=== PATIENT | male | born 1955 | race Caucasian/White ===

== ENCOUNTER → 2022-10-11 | Day surgery (SDC) | payer MEDICARE ==
[~2022-10-11] VITALS: Ht 172.7 cm; Wt 89.6 kg
[2022-10-11] VITALS (11 sets, daily range): BP systolic 125–193; BP diastolic 56–88
[~2022-10-11] MED LIST: AMLO2.5T2 PO; ASPI-612 PO; FLEC100T PO; LORazepam 0.5 MG tablet PO PRN; NEBI10TA12 PO; NITR0.4T48 SL; diphenhydrAMINE 25mg capsule PO PRN; fentaNYL/PF 50MCG/1 ML 2ML syringe ONE; heparin 1,000unit/ml 10ml vial 10 ML ONE; hydrALAZINE 20mg/ml inj. IV ONE; iohexol 350 MG/ML 50ML vial IV ONE; iohexol 350MG/ML 100ml bottle IV ONE; midazolam 1 mg/ML 2ml injection ONE; nitroGLYCERIN 0.4mg SUBLingual tab SL ONE; nitroGLYCERIN 0.4mg SUBLingual tab SL PRN; nitroGLYCERIN-Tridil 50MG/D5W 250 ML IV ONE; normal saline 1,000 ML IV SCH; verapamil 2.5 mg/ml inj IV ONE
--- NOTE | 2022-10-11 18:17 | NUR ---
Type and screen not performed, per lab the results are only valid for 72 hours.
== END | disposition home or self-care (01) ==
LOC: SSTAY O 13:41
PROVIDERS: ATTEND Internal Medicine Cardiovascular Disease
DX: I25.118 Atherosclerotic heart disease of native coronary artery with other forms of angina pectoris (principal); I10 Essential (primary) hypertension; E78.5 Hyperlipidemia, unspecified; I48.91 Unspecified atrial fibrillation; Z87.19 Personal history of other diseases of the digestive system; Z79.899 Other long term (current) drug therapy
CPT/HCPCS: 93005; 93459; 93880; 93970; 99152; 99153; C1760; C1894; J0360; J1644; J2250; J3010; J3490; J7030; Q0163; Q9967; 93458; A6258

== ENCOUNTER 2022-10-16 09:02 | Inpatient (IN) | payer MEDICARE ==
[~2022-10-16] VITALS: Ht 177.8 cm; Wt 87.0 kg
[2022-10-16] VITALS (13 sets, daily range): BP systolic 89–182; BP diastolic 47–85
[~2022-10-16 09:02] MED LIST changes: +DOCUMENT DATE & TIME OF BETA-BLOCKER PO ONE; +Insulin Reg/NS 100units/100mL 100 ML IV SCH; -LORazepam 0.5 MG tablet PO PRN; +LORazepam 2 mg/ml vial IV ONE; +albumin (human) 25% 100 ML IV solution IV ONE; +aminocaproic acid 250 MG/1 ML inj. ONE; +calcium chloride 100 MG/1 ML inj IV ONE; +cefazolin 2gm/D5W 100mL 100 ML IV ONE; -diphenhydrAMINE 25mg capsule PO PRN; +famotidine 20mg tablet PO ONE; -fentaNYL/PF 50MCG/1 ML 2ML syringe ONE; -heparin 1,000unit/ml 10ml vial 10 ML ONE; +heparin 10,000 units/1 ML INJ ONE; -hydrALAZINE 20mg/ml inj. IV ONE; -iohexol 350 MG/ML 50ML vial IV ONE; -iohexol 350MG/ML 100ml bottle IV ONE; +mannitol 12.5gm/50mL VIAL IV ONE; +methylPREDNISolone sod succ 1000mg vial ONE; +metoprolol tartrate 12.5mg (1/2 tablet) PO ONE; -midazolam 1 mg/ML 2ml injection ONE; +mupirocin 2% nasal ointment 1gm UD NS ONE; -nitroGLYCERIN 0.4mg SUBLingual tab SL ONE; -nitroGLYCERIN 0.4mg SUBLingual tab SL PRN; -nitroGLYCERIN-Tridil 50MG/D5W 250 ML IV ONE; -normal saline 1,000 ML IV SCH; +ringers solution, lacted 1,000 ML IV SCH; +sodium bicarbonate (8.4%) 1 mEq/ml syringe ONE; +vancomycin 1,500 MG in NS 300ml IV soln IV ONE; -verapamil 2.5 mg/ml inj IV ONE
[2022-10-16] MEDS ORDERED: albuterol 2.5 MG/3 ML nebule NEB PRN (09:05)
[2022-10-16 09:57] LABS: ABG BASE EXCESS -1.1 mmol/L (-2.0-2.0); ABG HCO3 22.8 mmol/L (22.0-26.0); ABG PCO2 (T) 36.2 mmHg (35.0-48.0); ABG PO2 (T) 88.6 mmHg (75.0-100.0); ALLEN'S TEST POSITIVE; FCOHb 0.3 % (0.0-3.9); FMetHb 0.2 % (0.0-1.5); FO2Hb 96.5 % (94-97); TOTAL HEMOGLOBIN 16.3 G/dl (14.0-17.9)
[2022-10-16 11:11] LABS: BASOPHILS % (AUTO) 0.4 % (0-1); EOSINOPHILS # (AUTO) 0.1 X10'3 (0-0.9); EOSINOPHILS % (AUTO) 1.2 % (0-6); LYMPHOCYTES % (AUTO) 13.9 % (21-51); MEAN CORPUSCULAR HEMOGLOBIN 29.3 PG (27.0-31.0); MEAN CORPUSCULAR HGB CONC 34.1 g/dL (33.0-36.5); MEAN CORPUSCULAR VOLUME 85.8 FL (78-98); MEAN PLATELET VOLUME 8.1 FL (7.4-10.4); MONOCYTES # (AUTO) 0.5 X10'3 (0-0.9); MONOCYTES % (AUTO) 7.7 % (2-12); NEUTROPHILS # (AUTO) 5.4 X10'3 (1.8-7.7); NEUTROPHILS % (AUTO) 76.8 % (42-75); PRE OP HEMATOCRIT 45.6 % (42.0-52.0); PRE OP HEMOGLOBIN 15.6 g/dL (14.0-17.9); PRE OP PLATELET COUNT 276 X10'3 (140-440); RED BLOOD COUNT 5.32 X10'6 (4.70-6.10); RED CELL DISTRIBUTION WIDTH 14.3 % (11.5-14.5)
[2022-10-16] MEDS ORDERED: epiNEPHrine 1 mg/ml inj ONE (11:15)
[2022-10-16] MEDS ORDERED: ceFAZolin 1000mg inj ONE (11:15)
[2022-10-16 11:20] LABS: CLARITY,URINE CLEAR (Clear); COLOR,URINE YELLOW (Yellow); GLUCOSE, URINE NEGATIVE (Neg); KETONES,URINE NEGATIVE (Neg); LEUKOCYTE ESTERASE ,URINE NEGATIVE (Neg); NITRITES, URINE NEGATIVE (Neg); OCCULT BLOOD,URINE TRACE-INTACT (Neg); PROTEIN,URINE NEGATIVE (Neg); UROBILINOGEN,URINE 0.2 E.U/dL (0.2-1.0)
[2022-10-16 11:22] LABS: PRE OP INR 0.9 INR; PRE OP PROTIME 10.4 SECONDS (9.0-12.0)
[2022-10-16 11:27] LABS: ALBUMIN 4.2 G/DL (3.4-5.0); ALBUMIN/GLOBULIN RATIO 1.3 (1.1-1.5); ALKALINE PHOSPHATASE 31 IU/L (46-116); BLOOD UREA NITROGEN 15 MG/DL (7-18); BUN/CREATININE RATIO 12.3 (10.0-20.0); CALCIUM 9.2 MG/DL (8.5-10.1); CHLORIDE 107 MMOL/L (99-107); CREATININE 1.22 MG/DL (0.60-1.10); PRE OP ALT 27 U/L (30-65); PRE OP ANION GAP 4 (8-16); PRE OP AST 17 U/L (10-37); PRE OP BILIRUB, TOTAL 0.7 MG/DL (0.0-1.0); PRE OP GLUCOSE 106 MG/DL (70-104); PRE OP POTASSIUM 4.5 MMOL/L (3.4-5.1); PRE OP SODIUM 140 MMOL/L (135-145); TOTAL CARBON DIOXIDE 28.6 MMOL/L (24-32); TOTAL PROTEIN 7.5 G/DL (6.4-8.2); eGFR 59 ML/MIN
[2022-10-16 11:39] LABS: UA COLLECTION TYPE CLN CATCH MIDSTREAM
[2022-10-16 11:41] LABS: BACTERIA,URINE NONE SEEN /HPF (Neg); RBC,URINE 0-2 /HPF (0-2); SQUAMOUS EPITHELIAL CELL,UR NONE SEEN /LPF (FEW); WBC,URINE NONE SEEN /HPF (0-4)
[2022-10-16] MEDS ORDERED: MIDAZolam 1 MG/ML 5ML VIAL ONE (12:28)
[2022-10-16] MEDS ORDERED: SUFENTANIL CITRATE 50 MCG/ML 2ml ampule IV ONE (12:28)
[2022-10-16] MEDS ORDERED: rocuronium 10mg/ml inj IV ONE ×2 (12:30)
[2022-10-16] MEDS ORDERED: sevoflurane 250ml liquid IH ONE (12:33)
[2022-10-16] MEDS ORDERED: protamine sulf. 10mg/ml inj. IV ONE (12:33)
[2022-10-16] MEDS ORDERED: BUPIVAcaine/PF 5 mg/ml 10ml ONE (12:37)
[2022-10-16 13:09] LABS: ABG BASE EXCESS 0.3 mmol/L (-2.0-2.0); ABG HCO3 23.8 mmol/L (22.0-26.0); ABG OXYGEN SATURATION 99.2 % (94-97); ABG PCO2 35.2 mmHg (35.0-48.0); ABG PO2 200.4 mmHg (75.0-100.0); CL (ABG) 107 mmol/L (99-107); FCOHb 0.4 % (0.0-3.9); FMetHb 0.3 % (0.0-1.5); FO2Hb 98.5 % (94-97); GLUCOSE (ABG) 92 mg/dl (70-104); IONIZED CA (ABG) 1.17 mmol/L (1.10-1.30); K (ABG) 4.1 mmol/L (3.5-5.1); TOTAL HEMOGLOBIN 14.2 G/dl (14.0-17.9)
[2022-10-16 13:18] LABS: ACT @ 1.70 U 307 SEC (193-297); ACT @ 2.84 U 463 SEC (260-420); BASELINE ACT 142 SEC (101-148); PATIENT WEIGHT 84.0k KG
[2022-10-16] MEDS ORDERED: heparin 10,000 units/1 ML INJ IV ONE (13:52)
[2022-10-16] MEDS ORDERED: papaverine 30 mg/ml 2ml inj. IV ONE (13:53)
[2022-10-16] MEDS ORDERED: propofol inj 20 ML IV ONE (13:54)
[2022-10-16] MEDS ORDERED: epiNEPHrine 1 mg/ml inj SQ ONE (13:55)
[2022-10-16 14:31] LABS: ABG BASE EXCESS -2.9 mmol/L (-2.0-2.0); ABG HCO3 21.7 mmol/L (22.0-26.0); ABG OXYGEN SATURATION 99.5 % (94-97); ABG PCO2 37.1 mmHg (35.0-48.0); ABG PO2 423.5 mmHg (75.0-100.0); CL (ABG) 104 mmol/L (99-107); FCOHb 0.2 % (0.0-3.9); FMetHb 0.3 % (0.0-1.5); GLUCOSE (ABG) 99 mg/dl (70-104); IONIZED CA (ABG) 1.05 mmol/L (1.10-1.30); K (ABG) 4.6 mmol/L (3.5-5.1); TOTAL HEMOGLOBIN 11.5 G/dl (14.0-17.9)
[2022-10-16 14:59] LABS: ABG BASE EXCESS -3.7 mmol/L (-2.0-2.0); ABG HCO3 21.1 mmol/L (22.0-26.0); ABG OXYGEN SATURATION 99.3 % (94-97); ABG PCO2 37.2 mmHg (35.0-48.0); ABG PO2 327.9 mmHg (75.0-100.0); CL (ABG) 105 mmol/L (99-107); FCOHb 0.4 % (0.0-3.9); FMetHb 0.3 % (0.0-1.5); FO2Hb 98.6 % (94-97); GLUCOSE (ABG) 106 mg/dl (70-104); IONIZED CA (ABG) 1.09 mmol/L (1.10-1.30); K (ABG) 4.6 mmol/L (3.5-5.1); TOTAL HEMOGLOBIN 11.8 G/dl (14.0-17.9)
[2022-10-16 15:36] LABS: ABG BASE EXCESS -1.4 mmol/L (-2.0-2.0); ABG HCO3 23.7 mmol/L (22.0-26.0); ABG OXYGEN SATURATION 76.8 % (94-97); ABG PCO2 40.9 mmHg (35.0-48.0); CL (ABG) 105 mmol/L (99-107); FCOHb 0.8 % (0.0-3.9); FMetHb 0.3 % (0.0-1.5); GLUCOSE (ABG) 104 mg/dl (70-104); K (ABG) 4.5 mmol/L (3.5-5.1); TOTAL HEMOGLOBIN 11.9 G/dl (14.0-17.9)
[2022-10-16 15:37] LABS: ACTIVATED CLOTTING TIME 130 SEC (101-148)
[2022-10-16] MEDS ORDERED: acetaminophen 1,000mg/100ml IV 100 ML IV ONE (15:38)
[2022-10-16] MEDS ORDERED: sodium phosphate inj. 15 MMOL in dextrose 5%-water 250 ML IV PRN (15:55)
[2022-10-16] MEDS ORDERED: potassium Cl 20 mEq SR tablet PO PRN (15:55)
[2022-10-16] MEDS ORDERED: Insulin Reg/NS 100units/100mL 100 ML IV SCH ×2 (15:55→16:46)
[2022-10-16] MEDS ORDERED: nitroGLYCERIN-Tridil 50MG/D5W 250 ML IV SCH ×2 (15:55→16:40)
[2022-10-16] MEDS ORDERED: potassium CL 10mEq/100ml bag 100 ML IV PRN (15:55)
[2022-10-16] MEDS ORDERED: magnesium 4gm in 100ml NS 100 ML IV PRN (15:55)
[2022-10-16] MEDS ORDERED: magnesium 2GM in 50ml NS 50 ML IV PRN (15:55)
[2022-10-16] MEDS ORDERED: potassium Cl 40MEQ/270ML bag 250 ML IV PRN (15:55)
[2022-10-16] MEDS ORDERED: potassium Cl 40MEQ/1/2NS 520ml 520 ML IV PRN (15:55)
[2022-10-16] MEDS ORDERED: mineral oil 133ml enema RC PRN (15:55)
[2022-10-16] MEDS ORDERED: magnesium hydroxide 30ml (MOM) UD suspension PO PRN (15:55)
[2022-10-16] MEDS ORDERED: insulin glargine (Lantus) pen - multi-dose SQ PRN (15:55)
[2022-10-16] MEDS ORDERED: acetaminophen 325mg tablet PO PRN ×2 (15:55)
[2022-10-16] MEDS ORDERED: morphine 4 MG/ML inj SYRINge IV PRN (15:55)
[2022-10-16] MEDS ORDERED: ondansetron/PF 4mg/2ml inj IV PRN (15:55)
[2022-10-16] MEDS ORDERED: sodium phosphate inj. 30 MMOL in dextrose 5%-water 250 ML IV PRN (15:55)
[2022-10-16] MEDS ORDERED: Neutra Phos packet PO PRN (15:55)
[2022-10-16] MEDS ORDERED: HYDROcodone/acetaminophen 10/325mg tab PO PRN (15:55)
[2022-10-16] MEDS ORDERED: bisacodyl 10mg suppository rectal RC PRN (15:55)
[2022-10-16] MEDS ORDERED: dextrose 50%-water 50ml dispensing syringe IV PRN (15:55)
[2022-10-16] MEDS ORDERED: sodium chloride 0.45% 1,000 ML IV SCH (15:55)
[2022-10-16] MEDS ORDERED: metoclopramide 5 mg/ml inj IV PRN (15:55)
[2022-10-16 16:26] LABS: BASOPHILS % (AUTO) 0.1 % (0-1); EOSINOPHILS # (AUTO) 0.1 X10'3 (0-0.9); EOSINOPHILS % (AUTO) 0.9 % (0-6); HEMATOCRIT 39.4 % (42.0-52.0); HEMOGLOBIN 13.3 g/dl (14.0-17.9); LYMPHOCYTES # (AUTO) 0.8 X10'3 (1.1-4.8); LYMPHOCYTES % (AUTO) 5.7 % (21-51); MEAN CORPUSCULAR HEMOGLOBIN 29.1 PG (27.0-31.0); MEAN CORPUSCULAR HGB CONC 33.6 g/dL (33.0-36.5); MEAN CORPUSCULAR VOLUME 86.6 FL (78-98); MEAN PLATELET VOLUME 8.1 FL (7.4-10.4); MONOCYTES # (AUTO) 0.6 X10'3 (0-0.9); MONOCYTES % (AUTO) 4.7 % (2-12); NEUTROPHILS # (AUTO) 11.7 X10'3 (1.8-7.7); NEUTROPHILS % (AUTO) 88.6 % (42-75); PLATELET COUNT 180 X10'3 (140-440); RED BLOOD COUNT 4.55 X10'6 (4.70-6.10); RED CELL DISTRIBUTION WIDTH 14.1 % (11.5-14.5); WHITE BLOOD COUNT 13.2 X10'3 (4.5-11.0)
[2022-10-16 16:38] LABS: APTT 34 SECONDS (22-32)
[2022-10-16] MEDS ORDERED: niCARDipine-NS 40mg/200ml IVPB 200 ML IV PRN (16:38)
[2022-10-16 16:43] LABS: ALANINE AMINOTRANSFERASE 15 U/L (12-78); ALBUMIN 3.2 G/DL (3.4-5.0); ALBUMIN/GLOBULIN RATIO 1.6 (1.1-1.5); ALKALINE PHOSPHATASE 20 IU/L (46-116); ANION GAP 5 (8-16); ASPARTATE AMINO TRANSFERASE 23 U/L (10-37); BILIRUBIN,TOTAL 0.7 MG/DL (0.1-1.0); BLOOD UREA NITROGEN 14 MG/DL (7-18); BUN/CREATININE RATIO 10.8 (10.0-20.0); CALCIUM 8.6 MG/DL (8.5-10.1); CHLORIDE 108 MMOL/L (99-107); GLUCOSE 123 MG/DL (70-104); MAGNESIUM 1.8 MG/DL (1.5-2.4); PHOSPHORUS 2.9 MG/DL (2.3-4.5); POTASSIUM 4.2 MMOL/L (3.5-5.1); SODIUM 139 MMOL/L (135-145); TOTAL CARBON DIOXIDE 25.8 MMOL/L (24-32); TOTAL PROTEIN 5.2 G/DL (6.4-8.2); eGFR 55 ML/MIN
[2022-10-16] MEDS: ceFAZolin/D5W- 1GM premix 50 ML IV SCH ×2 (17:00→23:59)
--- NOTE | 2022-10-16 17:10 | NUR ---
Patient to room 2014 from the OR s/p CABG x5 at 1613. Patient with VSS on ICU monitor. Patient placed and started on ventilator. Drip rates, urine output and levels of chest tubes noted at time of arrival. Patient heart rate started to drop to about 55-57 bpm around 1700 and pacer was turned on at that time.
--- NOTE | 2022-10-16 18:12 | NUR ---
Problems reprioritized. Patient report given, questions answered & plan of care reviewed with MARY Purcell.
[2022-10-16] MEDS: morphine 2 MG/ML inj. syringe IV PRN ×2 (18:25→22:07)
[2022-10-16] MEDS: albumin (Human) 5% 250ml 250 ML IV PRN ×3 (18:42→23:00)
[2022-10-16] MEDS: mupirocin 2% nasal ointment 1gm UD NS SCH (19:51)
[2022-10-16] MEDS: vancomycin/NS 1 GM ADD-VANTAGE 250 ML IV SCH (19:51)
[2022-10-16] MEDS: ketorolac tromethamine 15mg/ml inj. IV SCH (19:51)
[2022-10-16] MEDS: sennosides/docusate sodium tablet PO SCH (19:51)
[2022-10-16] MEDS: atorvastatin 10mg tablet PO SCH (19:51)
--- NOTE | 2022-10-16 21:23 | NUR ---
Dr Rodriguez rounded on pt. Would like him extubated now, switched pt to spontaneous to get that going. he would like him to ahve an albumin now as well since his stroke volume is trending down. Addendum: 10/17/22 at 0005 by Max Holliday RN Dr. Rodriguez also switched pt from AV paced to just A paced
[2022-10-16 21:26] LABS: BASOPHILS % (AUTO) 0.1 % (0-1); EOSINOPHILS % (AUTO) 0.1 % (0-6); HEMATOCRIT 38.2 % (42.0-52.0); HEMOGLOBIN 12.9 g/dl (14.0-17.9); LYMPHOCYTES # (AUTO) 0.4 X10'3 (1.1-4.8); LYMPHOCYTES % (AUTO) 2.9 % (21-51); MEAN CORPUSCULAR HEMOGLOBIN 29.6 PG (27.0-31.0); MEAN CORPUSCULAR HGB CONC 33.8 g/dL (33.0-36.5); MEAN CORPUSCULAR VOLUME 87.5 FL (78-98); MEAN PLATELET VOLUME 8.3 FL (7.4-10.4); MONOCYTES # (AUTO) 0.5 X10'3 (0-0.9); NEUTROPHILS % (AUTO) 93.9 % (42-75); PLATELET COUNT 202 X10'3 (140-440); RED BLOOD COUNT 4.36 X10'6 (4.70-6.10); RED CELL DISTRIBUTION WIDTH 14.3 % (11.5-14.5); WHITE BLOOD COUNT 14.9 X10'3 (4.5-11.0)
[2022-10-16 21:36] LABS: ALBUMIN 3.5 G/DL (3.4-5.0); ANION GAP 9 (8-16); BLOOD UREA NITROGEN 16 MG/DL (7-18); BUN/CREATININE RATIO 10.2 (10.0-20.0); CALCIUM 8.2 MG/DL (8.5-10.1); CHLORIDE 109 MMOL/L (99-107); CREATININE 1.57 MG/DL (0.60-1.10); GLUCOSE 171 MG/DL (70-104); MAGNESIUM 2.8 MG/DL (1.5-2.4); PHOSPHORUS 3.3 MG/DL (2.3-4.5); POTASSIUM 4.2 MMOL/L (3.5-5.1); SODIUM 141 MMOL/L (135-145); TOTAL CARBON DIOXIDE 23.4 MMOL/L (24-32); eGFR 44 ML/MIN
[2022-10-16] MEDS: potassium Cl 20mEq/100mL bag 100 ML IV PRN ×2 (21:50→22:56)
[2022-10-16 21:58] LABS: ABG HCO3 18.6 mmol/L (22.0-26.0); ABG OXYGEN SATURATION 96.2 % (94-97); ABG PCO2 (T) 33.6 mmHg (35.0-48.0); ABG PO2 (T) 87.2 mmHg (75.0-100.0); FCOHb 0.1 % (0.0-3.9); FMetHb 0.2 % (0.0-1.5); FO2Hb 95.9 % (94-97); PATIENT TEMPERATURE 36.7; PEEP 5 cm H2O
[2022-10-16] MEDS: HYDROcodone/acetaminophen 10/325mg tab PO PRN (22:09)
--- NOTE | 2022-10-16 22:23 | NUR ---
Extubated at 22:23. A little striderous after extubation. on 4LNC sats 93%.
[2022-10-17] VITALS (24 sets, daily range): BP systolic 90–170; BP diastolic 50–85
[2022-10-17] MEDS: ketorolac tromethamine 15mg/ml inj. IV SCH ×3 (02:00→13:57)
[2022-10-17 02:11] LABS: BASOPHILS % (AUTO) 0 % (0-1); EOSINOPHILS % (AUTO) 0 % (0-6); LYMPHOCYTES # (AUTO) 0.3 X10'3 (1.1-4.8); LYMPHOCYTES % (AUTO) 2.2 % (21-51); MEAN CORPUSCULAR HEMOGLOBIN 29.6 PG (27.0-31.0); MEAN CORPUSCULAR HGB CONC 34.2 g/dL (33.0-36.5); MEAN CORPUSCULAR VOLUME 86.5 FL (78-98); MEAN PLATELET VOLUME 8.2 FL (7.4-10.4); MONOCYTES # (AUTO) 0.4 X10'3 (0-0.9); NEUTROPHILS # (AUTO) 11.4 X10'3 (1.8-7.7); NEUTROPHILS % (AUTO) 94.8 % (42-75); PLATELET COUNT 186 X10'3 (140-440); RED BLOOD COUNT 4.05 X10'6 (4.70-6.10); RED CELL DISTRIBUTION WIDTH 14.7 % (11.5-14.5); WHITE BLOOD COUNT 12.1 X10'3 (4.5-11.0)
[2022-10-17 02:28] LABS: ALANINE AMINOTRANSFERASE 17 U/L (12-78); ALBUMIN 3.7 G/DL (3.4-5.0); ALBUMIN/GLOBULIN RATIO 1.9 (1.1-1.5); ALKALINE PHOSPHATASE 18 IU/L (46-116); ANION GAP 7 (8-16); ASPARTATE AMINO TRANSFERASE 22 U/L (10-37); BILIRUBIN,TOTAL 0.6 MG/DL (0.1-1.0); BLOOD UREA NITROGEN 17 MG/DL (7-18); BUN/CREATININE RATIO 11.6 (10.0-20.0); CALCIUM 8.3 MG/DL (8.5-10.1); CHLORIDE 110 MMOL/L (99-107); CREATININE 1.47 MG/DL (0.60-1.10); GLUCOSE 135 MG/DL (70-104); MAGNESIUM 2.6 MG/DL (1.5-2.4); PHOSPHORUS 3.1 MG/DL (2.3-4.5); SODIUM 140 MMOL/L (135-145); TOTAL CARBON DIOXIDE 22.6 MMOL/L (24-32); TOTAL PROTEIN 5.7 G/DL (6.4-8.2); eGFR 48 ML/MIN
--- NOTE | 2022-10-17 06:26 | NUR ---
Patient in room CICU 2014. I have received report from MARY Purcell and had the opportunity to ask questions and assume patient care.
[2022-10-17] MEDS: ceFAZolin/D5W- 1GM premix 50 ML IV SCH ×3 (07:10→23:19)
[2022-10-17] MEDS: HYDROcodone/acetaminophen 10/325mg tab PO PRN (07:11)
[2022-10-17] MEDS: metoprolol tartrate 12.5mg (1/2 tablet) PO SCH ×2 (07:45→20:14)
[2022-10-17] MEDS: sennosides/docusate sodium tablet PO SCH ×2 (07:45→20:14)
[2022-10-17] MEDS: aspirin 81mg tab.chew PO SCH (07:45)
[2022-10-17] MEDS: vancomycin/NS 1 GM ADD-VANTAGE 250 ML IV SCH ×2 (07:46→20:14)
[2022-10-17] MEDS: flecainide 50mg tablet PO SCH (07:46)
[2022-10-17] MEDS: mupirocin 2% nasal ointment 1gm UD NS SCH ×2 (07:47→20:14)
[2022-10-17 08:29] LABS: ABG BASE EXCESS -0.9 mmol/L (-2.0-2.0); ABG HCO3 24.3 mmol/L (22.0-26.0); ABG PCO2 (T) 41.3 mmHg (35.0-48.0); ABG PO2 (T) 92.6 mmHg (75.0-100.0); FCOHb 0.4 % (0.0-3.9); FMetHb 0.4 % (0.0-1.5); FO2Hb 96.2 % (94-97); PATIENT TEMPERATURE 36.6; PEEP 5 cm H2O; RESPIRATORY RATE 12 b/min; TIDAL VOLUME 500 mL; TOTAL HEMOGLOBIN 13.9 G/dl (14.0-17.9)
[2022-10-17 09:02] LABS: ABG PO2 41.3 mmHg (75.0-100.0)
--- NOTE | 2022-10-17 09:03 | NUR ---
Right radial arterial line discontinued manual pressure held 5 mins. [place] and introducer discontinued. Manual pressure held, dressing changed.
--- NOTE | 2022-10-17 12:04 | NUR ---
Nutrition consult: Pt POD #1 s/p CABG x 5. Per EMR pt extubated last night. Pt would benefit from post CABG nutrition therapy education as appropriate. Will continue to follow. Addendum: 10/17/22 at [address] Amended: Links added.
--- NOTE | 2022-10-17 18:25 | NUR ---
Problems reprioritized. Patient report given, questions answered & plan of care reviewed with MARY Mccormack.
--- NOTE | 2022-10-17 18:30 | NUR ---
Patient in room CICU 2014. I have received report from MARY Davis and had the opportunity to ask questions and assume patient care.
[2022-10-17] MEDS: atorvastatin 10mg tablet PO SCH (20:14)
[2022-10-18] VITALS (21 sets, daily range): BP systolic 120–176; BP diastolic 60–93
[2022-10-18] MEDS: amLODIPine 5mg tablet PO SCH ×2 (00:32→06:42)
[2022-10-18 02:58] LABS: BASOPHILS % (AUTO) 0 % (0-1); EOSINOPHILS % (AUTO) 0 % (0-6); HEMOGLOBIN 11.5 g/dl (14.0-17.9); LYMPHOCYTES # (AUTO) 0.3 X10'3 (1.1-4.8); LYMPHOCYTES % (AUTO) 1.7 % (21-51); MEAN CORPUSCULAR HEMOGLOBIN 29.6 PG (27.0-31.0); MEAN CORPUSCULAR HGB CONC 33.8 g/dL (33.0-36.5); MEAN CORPUSCULAR VOLUME 87.4 FL (78-98); MEAN PLATELET VOLUME 8.6 FL (7.4-10.4); MONOCYTES # (AUTO) 0.7 X10'3 (0-0.9); MONOCYTES % (AUTO) 3.9 % (2-12); NEUTROPHILS # (AUTO) 15.8 X10'3 (1.8-7.7); NEUTROPHILS % (AUTO) 94.4 % (42-75); PLATELET COUNT 176 X10'3 (140-440); RED BLOOD COUNT 3.89 X10'6 (4.70-6.10); RED CELL DISTRIBUTION WIDTH 14.5 % (11.5-14.5); WHITE BLOOD COUNT 16.7 X10'3 (4.5-11.0)
[2022-10-18 03:15] LABS: ALBUMIN 3.5 G/DL (3.4-5.0); ANION GAP 3 (8-16); BLOOD UREA NITROGEN 23 MG/DL (7-18); BUN/CREATININE RATIO 17.8 (10.0-20.0); CALCIUM 8.7 MG/DL (8.5-10.1); CHLORIDE 109 MMOL/L (99-107); CREATININE 1.29 MG/DL (0.60-1.10); GLUCOSE 161 MG/DL (70-104); MAGNESIUM 2.2 MG/DL (1.5-2.4); POTASSIUM 5.1 MMOL/L (3.5-5.1); SODIUM 139 MMOL/L (135-145); TOTAL CARBON DIOXIDE 26.8 MMOL/L (24-32); eGFR 55 ML/MIN
--- NOTE | 2022-10-18 06:17 | NUR ---
Problems reprioritized. Patient report given, questions answered & plan of care reviewed with MARY Ortiz.
[2022-10-18] MEDS: aspirin 81mg tab.chew PO SCH (06:41)
[2022-10-18] MEDS: mupirocin 2% nasal ointment 1gm UD NS SCH (06:41)
[2022-10-18] MEDS: sennosides/docusate sodium tablet PO SCH ×2 (06:43→20:00)
[2022-10-18] MEDS: flecainide 50mg tablet PO SCH (06:43)
[2022-10-18] MEDS: pantoprazole 40mg Tablet.DR PO SCH (06:43)
[2022-10-18] MEDS: metoprolol tartrate 12.5mg (1/2 tablet) PO SCH ×2 (06:43→20:06)
[2022-10-18] MEDS ORDERED: furosemide 40mg/4ml inj IV ONE (07:55)
--- NOTE | 2022-10-18 08:15 | NUR ---
Riley AMEZQUITA in to round on patient. Chest tubes. DC'd
--- NOTE | 2022-10-18 08:30 | NUR ---
Dr Prabhakar in to round on patient.
--- NOTE | 2022-10-18 09:15 | NUR ---
Central line dc'd to right neck. dressing c/d/
[2022-10-18] MEDS ORDERED: potassium Cl 40MEQ/1/2NS 520ml 520 ML IV PRN (10:50)
[2022-10-18] MEDS ORDERED: potassium Cl 40MEQ/270ML bag 250 ML IV PRN (10:50)
[2022-10-18] MEDS ORDERED: potassium CL 10mEq/100ml bag 100 ML IV PRN (10:50)
[2022-10-18] MEDS ORDERED: potassium Cl 20 mEq SR tablet PO PRN ×2 (10:50)
[2022-10-18] MEDS ORDERED: magnesium 4gm in 100ml NS 100 ML IV PRN (10:50)
[2022-10-18] MEDS ORDERED: magnesium 2GM in 50ml NS 50 ML IV PRN (10:50)
[2022-10-18] MEDS ORDERED: potassium Cl 20mEq/100mL bag 100 ML IV PRN (10:50)
--- NOTE | 2022-10-18 14:07 | NUR ---
Nutrition consult: Attempted visit with pt at bedside however pt sleeping. Will f/u at another time. Addendum: 10/18/22 at [address] Amended: Links added.
--- NOTE | 2022-10-18 16:58 | NUR ---
report given to MARY Matt on U rm 3019C. VSS zero change in condition. patient transported via .
[2022-10-18] MEDS ORDERED: hydrALAZINE 20mg/ml inj. IV PRN (17:40)
[2022-10-18] MEDS: magnesium Cl slow-release 64mg tablet PO SCH (20:00)
[2022-10-18] MEDS: atorvastatin 10mg tablet PO SCH (20:06)
--- NOTE | 2022-10-18 23:35 | NUR ---
Problems reprioritized. Patient report given, questions answered & plan of care reviewed with Brittany HERNANDEZ.
[2022-10-19 02:00] VITALS: BP 178/91
[2022-10-19] MEDS: amLODIPine 5mg tablet PO SCH ×3 (05:34→19:59)
--- NOTE | 2022-10-19 05:34 | NUR ---
called debi regarding bp of 174/91 at 0300, hydralyzine given; retook bp at 0515- bp 192/95- debi stated to given norvasc po 5 mg early
[2022-10-19 07:00] VITALS: BP 187/94
[2022-10-19 07:04] LABS: BASOPHILS % (AUTO) 0 % (0-1); EOSINOPHILS % (AUTO) 0.1 % (0-6); HEMATOCRIT 40.6 % (42.0-52.0); HEMOGLOBIN 13.7 g/dl (14.0-17.9); LYMPHOCYTES # (AUTO) 1.1 X10'3 (1.1-4.8); LYMPHOCYTES % (AUTO) 7.7 % (21-51); MEAN CORPUSCULAR HEMOGLOBIN 29.3 PG (27.0-31.0); MEAN CORPUSCULAR HGB CONC 33.9 g/dL (33.0-36.5); MEAN CORPUSCULAR VOLUME 86.6 FL (78-98); MEAN PLATELET VOLUME 8.4 FL (7.4-10.4); MONOCYTES % (AUTO) 7.1 % (2-12); NEUTROPHILS % (AUTO) 85.1 % (42-75); PLATELET COUNT 228 X10'3 (140-440); RED BLOOD COUNT 4.69 X10'6 (4.70-6.10); RED CELL DISTRIBUTION WIDTH 14.7 % (11.5-14.5); WHITE BLOOD COUNT 14.1 X10'3 (4.5-11.0)
--- NOTE | 2022-10-19 07:15 | NUR ---
Problems reprioritized. Patient report given, questions answered & plan of care reviewed with ESTER HERNANDEZ.
[2022-10-19 07:18] LABS: ALBUMIN 3.8 G/DL (3.4-5.0); ANION GAP 6 (8-16); BLOOD UREA NITROGEN 23 MG/DL (7-18); BUN/CREATININE RATIO 19.2 (10.0-20.0); CALCIUM 9.2 MG/DL (8.5-10.1); CHLORIDE 106 MMOL/L (99-107); GLUCOSE 107 MG/DL (70-104); POTASSIUM 4.2 MMOL/L (3.5-5.1); SODIUM 142 MMOL/L (135-145); eGFR 60 ML/MIN
[2022-10-19] MEDS ORDERED: metoprolol tartrate 12.5mg (1/2 tablet) PO SCH (08:00)
[2022-10-19] MEDS: aspirin 81mg tab.chew PO SCH ×3 (08:15→20:00)
[2022-10-19] MEDS: sennosides/docusate sodium tablet PO SCH ×2 (08:15→20:00)
[2022-10-19] MEDS: pantoprazole 40mg Tablet.DR PO SCH (08:17)
[2022-10-19] MEDS: flecainide 50mg tablet PO SCH (08:18)
[2022-10-19] MEDS: magnesium Cl slow-release 64mg tablet PO SCH ×2 (08:18→19:59)
[2022-10-19 11:00] VITALS: BP 154/82
[2022-10-19] MEDS ORDERED: NOR5T PO (12:27)
[2022-10-19] MEDS ORDERED: ATOR10TA PO (12:27)
[2022-10-19] MEDS ORDERED: LOP12.5T PO (12:27)
[2022-10-19] MEDS ORDERED: HYDR-3972 PO (12:30)
--- NOTE | 2022-10-19 14:55 | NUR ---
F/u for nutrition consult: Attempted visit however pt not at bedside. Will f/u at another time. Addendum: 10/19/22 at [address] Amended: Links added.
[2022-10-19 15:00] VITALS: BP 163/81
[2022-10-19] MEDS ORDERED: ondansetron 4mg rapidly disintigrating tab PO PRN (17:00)
[2022-10-19 18:00] VITALS: BP 164/89
--- NOTE | 2022-10-19 18:00 | NUR ---
Patient in room PCU 3013. I have received report from ESTER HERNANDEZ and had the opportunity to ask questions and assume patient care.
[2022-10-19] MEDS ORDERED: amLODIPine 5mg tablet PO PRN (18:35)
[2022-10-19] MEDS ORDERED: furosemide 20 MG/2 ML vial IV ONE (19:25)
[2022-10-19] MEDS: hydrALAZINE 25 MG tablet PO SCH (19:57)
[2022-10-19] MEDS: metoprolol succinate 25mg (24-HOUR) SR. Tablet PO SCH (19:58)
[2022-10-19] MEDS: atorvastatin 10mg tablet PO SCH (19:58)
[2022-10-19 22:00] VITALS: BP 168/92
[2022-10-20 02:00] VITALS: BP 146/87
[2022-10-20 06:00] VITALS: BP 162/91
--- NOTE | 2022-10-20 06:17 | NUR ---
Problems reprioritized. Patient report given, questions answered & plan of care reviewed with FABIANO HERNANDEZ.
[2022-10-20 06:43] LABS: BASOPHILS % (AUTO) 0.1 % (0-1); EOSINOPHILS # (AUTO) 0.3 X10'3 (0-0.9); EOSINOPHILS % (AUTO) 2.5 % (0-6); HEMATOCRIT 40.4 % (42.0-52.0); HEMOGLOBIN 14.1 g/dl (14.0-17.9); LYMPHOCYTES # (AUTO) 1.1 X10'3 (1.1-4.8); LYMPHOCYTES % (AUTO) 10.5 % (21-51); MEAN CORPUSCULAR HEMOGLOBIN 30.1 PG (27.0-31.0); MEAN CORPUSCULAR HGB CONC 34.8 g/dL (33.0-36.5); MEAN CORPUSCULAR VOLUME 86.6 FL (78-98); MEAN PLATELET VOLUME 8.7 FL (7.4-10.4); MONOCYTES % (AUTO) 9.4 % (2-12); NEUTROPHILS # (AUTO) 7.9 X10'3 (1.8-7.7); NEUTROPHILS % (AUTO) 77.5 % (42-75); PLATELET COUNT 225 X10'3 (140-440); RED BLOOD COUNT 4.67 X10'6 (4.70-6.10); RED CELL DISTRIBUTION WIDTH 14.4 % (11.5-14.5); WHITE BLOOD COUNT 10.2 X10'3 (4.5-11.0)
[2022-10-20 07:14] LABS: ALBUMIN 3.5 G/DL (3.4-5.0); ANION GAP 6 (8-16); BLOOD UREA NITROGEN 23 MG/DL (7-18); BUN/CREATININE RATIO 18.3 (10.0-20.0); CALCIUM 9.4 MG/DL (8.5-10.1); CHLORIDE 103 MMOL/L (99-107); CREATININE 1.26 MG/DL (0.60-1.10); GLUCOSE 98 MG/DL (70-104); POTASSIUM 4.1 MMOL/L (3.5-5.1); SODIUM 141 MMOL/L (135-145); TOTAL CARBON DIOXIDE 32.5 MMOL/L (24-32); eGFR 57 ML/MIN
[2022-10-20] MEDS ORDERED: aspirin 325mg tablet PO SCH (08:00)
[2022-10-20] MEDS: sennosides/docusate sodium tablet PO SCH (08:26)
[2022-10-20] MEDS: magnesium Cl slow-release 64mg tablet PO SCH (08:26)
[2022-10-20] MEDS: metoprolol succinate 25mg (24-HOUR) SR. Tablet PO SCH (08:26)
[2022-10-20] MEDS: flecainide 50mg tablet PO SCH (08:27)
[2022-10-20] MEDS: pantoprazole 40mg Tablet.DR PO SCH (08:27)
[2022-10-20] MEDS: amLODIPine 5mg tablet PO SCH (08:27)
[2022-10-20 08:28] VITALS: BP_SYST 162
[2022-10-20] MEDS: hydrALAZINE 25 MG tablet PO SCH (08:28)
--- NOTE | 2022-10-20 12:15 | NUR ---
Patient was discharged at 1200 with instructions, verbalizing understanding of instructions, in wheelchair accompanied by nursing staff and spouse going home via private vehicle. All lines and tubes including PIV with cannula intact and tele monitor have been removed. Education has been provided at bedside and all questions have been answered. Patient is stable and appropriate for discharge.
--- NOTE | 2022-10-20 12:24 | NUR ---
F/u: Pt discharged prior to RD being available for bedside visit. Written post CABG nutrition therapy education and RD contact information mailed to patient's home address found in EMR. Will remain available. Addendum: 10/20/22 at [address] Amended: Links added.
== END 2022-10-20 12:08 | disposition home or self-care (01) | DRG 235 ==
LOC: PAS IN 09:02 → CICU 2S 16:09 → PCU 3S 10-18 17:34
PROVIDERS: ADMIT Thoracic Surgery (Cardiothoracic Vascular Surgery); ATTEND Thoracic Surgery (Cardiothoracic Vascular Surgery)
PROC: 02100Z8 Bypass Coronary Artery, One Artery from Right Internal Mammary, Open Approach (ICD-10-PCS; 2022-10-16)
PROC: 021209W Bypass Coronary Artery, Three Arteries from Aorta with Autologous Venous Tissue, Open Approach (ICD-10-PCS; 2022-10-16)
PROC: 06BQ4ZZ Excision of Left Saphenous Vein, Percutaneous Endoscopic Approach (ICD-10-PCS; 2022-10-16)
PROC: 5A1221Z Performance of Cardiac Output, Continuous (ICD-10-PCS; 2022-10-16)
PROC: B24BZZ4 Ultrasonography of Heart with Aorta, Transesophageal (ICD-10-PCS; 2022-10-16)
PROC: 02100Z9 Bypass Coronary Artery, One Artery from Left Internal Mammary, Open Approach (ICD-10-PCS; principal; 2022-10-16 12:33)
DX: I25.118 Atherosclerotic heart disease of native coronary artery with other forms of angina pectoris (principal); N17.0 Acute kidney failure with tubular necrosis; J98.11 Atelectasis; E87.70 Fluid overload, unspecified; I45.4 Nonspecific intraventricular block; I12.9 Hypertensive chronic kidney disease with stage 1 through stage 4 chronic kidney disease, or unspecified chronic kidney disease; M79.18 Myalgia, other site; I48.0 Paroxysmal atrial fibrillation; N18.30 Chronic kidney disease, stage 3 unspecified; Z79.899 Other long term (current) drug therapy; Z79.82 Long term (current) use of aspirin
CPT/HCPCS: 36415; 36600; 71045; 71046; 80048; 80053; 81001; 82330; 82435; 82803; 82947; 82948; 83036; 83735; 84100; 84132; 84295; 85018; 85025; 85347; 85610; 85730; 86885; 86900; 86901; 86920; 87081; 93005; 93306; 93325; 94002; 94010; 94760; 97116; 97161; 97530; A4333; A4618; A6258; A6449; A7000; A7048; C1751; G0378; J0131; J0171; J0360; J0690; J1644; J1815; J1885; J1940; J2060; J2150; J2250; J2270; J2440; J2704; J2720; J2930; J3370; J3475; J3480; J3490; J7030; J7040; J7050; J7120; P9045; P9047

== ENCOUNTER 2022-10-24 08:52 | Outpatient (CLI) | payer MEDICARE ==
[~2022-10-24 08:52] MED LIST changes: -AMLO2.5T2 PO; +ATOR10TA PO; -DOCUMENT DATE & TIME OF BETA-BLOCKER PO ONE; +HYDR-3972 PO; -Insulin Reg/NS 100units/100mL 100 ML IV SCH; +LOP12.5T PO; -LORazepam 2 mg/ml vial IV ONE; -NEBI10TA12 PO; -NITR0.4T48 SL; +NOR5T PO; -albumin (human) 25% 100 ML IV solution IV ONE; -aminocaproic acid 250 MG/1 ML inj. ONE; -calcium chloride 100 MG/1 ML inj IV ONE; -cefazolin 2gm/D5W 100mL 100 ML IV ONE; -famotidine 20mg tablet PO ONE; -heparin 10,000 units/1 ML INJ ONE; -mannitol 12.5gm/50mL VIAL IV ONE; -methylPREDNISolone sod succ 1000mg vial ONE; -metoprolol tartrate 12.5mg (1/2 tablet) PO ONE; -mupirocin 2% nasal ointment 1gm UD NS ONE; -ringers solution, lacted 1,000 ML IV SCH; -sodium bicarbonate (8.4%) 1 mEq/ml syringe ONE; -vancomycin 1,500 MG in NS 300ml IV soln IV ONE
== END 2022-10-24 23:59 | disposition home or self-care (01) ==
LOC: RAD 08:52
PROVIDERS: ATTEND Internal Medicine Cardiovascular Disease
DX: I51.7 Cardiomegaly (principal); R06.02 Shortness of breath; I63.00 Cerebral infarction due to thrombosis of unspecified precerebral artery; I67.82 Cerebral ischemia; R90.82 White matter disease, unspecified; I70.0 Atherosclerosis of aorta; I25.10 Atherosclerotic heart disease of native coronary artery without angina pectoris; Z95.1 Presence of aortocoronary bypass graft
CPT/HCPCS: 70450; 71250